=== PATIENT | female | born 1995 | race Asian ===

== ENCOUNTER 2018-03-26 09:21 | Emergency (ER) | payer OTHER ==
[~2018-03-26] VITALS: Ht 160 cm; Wt 65.7 kg
[2018-03-26 09:27] VITALS: TEMP 36.3; Ht 160 cm; Wt 65.7 kg
[2018-03-26 10:27] LABS: BASO % 0.1 %; BASO ABS # 0.01 K/uL (0-0.2); EOS % 0.1 %; EOS ABS # 0.01 K/uL (0-0.5); HEMATOCRIT 38.1 % (37-47); HEMOGLOBIN 12.9 g/dL (12.0-16.0); IG# 0.05 K/uL (0.00-0.02); LYMPH % 14.8 %; LYMPH ABS # 1.97 K/uL (1.2-3.4); MEAN CELL VOLUME 83.4 fL (80-100); MEAN CORPUSCULAR HEMOGLOBIN 28.2 pg (25-34); MEAN CORPUSCULAR HGB CONC 33.9 g/dl (32-36); MEAN PLATELET VOLUME 9.5 fL (7.4-10.4); MONO % 4.4 %; MONO ABS # 0.59 K/uL (0.11-0.59); NEUT % 80.2 %; NEUT ABS # 10.72 K/uL (1.4-6.5); PLATELET COUNT 267 K/uL (130-400); RED CELL DISTRIBUTION WIDTH CV 13.9 % (11.5-14.5); RED CELL DISTRIBUTION WIDTH SD 42.5 fL (36.4-46.3); WHITE BLOOD COUNT 13.35 K/uL (4.8-10.8)
[2018-03-26] MEDS ORDERED: [UNRECOGNIZED DRUG - OTHER] (10:29)
[2018-03-26 10:39] LABS: PTT PATIENT 26.6 SECONDS (21.0-31.0)
[2018-03-26 10:47] LABS: MONOSPOT NEG (NEG)
[2018-03-26 10:48] LABS: ALBUMIN 3.8 gm/dl (3.4-5.0); ALKALINE PHOSPHATASE 86 U/L (45-117); ALT/SGPT 37 U/L (12-78); AST/SGOT 23 U/L (15-37); BLOOD UREA NITROGEN 9 mg/dl (7-18); CALCIUM 8.8 mg/dl (8.5-10.1); CARBON DIOXIDE 24 mmol/L (21-32); CREATININE 0.53 mg/dl (0.60-1.20); GLUCOSE 107 mg/dl (70-99); POTASSIUM 3.6 mmol/L (3.5-5.1); SODIUM 136 mmol/L (136-145)
[2018-03-26] MEDS ORDERED: PRED20TA2 PO (11:30)
--- NOTE | 2018-03-26 11:31 | EMERGENCY ROOM VISIT NOTE ---
History First contact with patient: 09:33 Chief Complaint: RASH Stated Complaint: RASH History of Present Illness The patient is a 22 year old female who presents to the Emergency Room via private vehicle with complaints of "rash". The patient states that she recently came to the area from [place]. She flew in last week. She states she had a minimal cough last week which has subsided. She states that yesterday she noticed that she had a rash beginning on her right arm which then spread to the rest of her body. It is on her palms, feet and she notes it is itchy. No fevers, chills. She denies any medical problems. She has been doing dexamethasone cream and Claritin with some relief. She denies any trouble swallowing. No trouble breathing. She felt minimal chest tightness questionably earlier which has resolved. Review of Systems A complete 10-point Review of Systems was discussed with the patient, with pertinent positives and negatives listed in the History of Present Illness. All remaining Review of Systems questions can be considered negative unless otherwise specified. Past Medical/Surgical History No pertinent. Family History No pertinent. Social History Smoking Status: Never Smoker Patient is from [place], and is currently attending [facility]. Current/Historical Medications Scheduled Prednisone (Prednisone Tab), 2 TAB PO DAILY Miscellaneous Medications [Clarityne] Physical Exam Vital Signs Date Time Temp Pulse Resp B/P (MAP) Pulse Ox O2 Delivery O2 Flow Rate FiO2 03/26/18 11:42 87 20 119/82 98 03/26/18 10:09 Room Air 03/26/18 09:27 36.3 113 20 128/88 97 Room Air Physical Exam VITAL SIGNS - Vital signs and nursing notes were reviewed. Stable. Afebrile. GENERAL -22-year-old female appearing her stated age who is in no acute distress. Communicates well with provider and answers questions appropriately. SKIN -patient has numerous slightly raised urticarial-like erythematous regions that are circular in nature overlying the tops of the feet, palms and dorsum of the hand as well as on the torso and legs. It is not petechial in nature. There is no drainage. HEAD - NC/AT. EYES -Sclera anicteric. EARS - No deformities of external structures noted on gross examination bilaterally. NOSE - Midline and without cyanosis. No epistaxis or purulent drainage noted. MOUTH/OROPHARYNX - Without perioral cyanosis. Buccal mucosa pink and moist and without leukoplakia. Tongue midline with equal elevation of palate bilaterally. No tonsillar hypertrophy, erythema, or exudates noted. Small spots on the posterior mucosa noted. NECK - Neck with FROM. Supple to palpation. No lymphadenopathy noted. No nuchal rigidity. LUNGS - Chest wall symmetric without accessory muscle use, intercostals retractions, or central cyanosis. Normal vesicular breath sounds CTA B/L. No wheezes, rales, or rhonchi appreciated. CARDIAC - RRR with S1/S2. No murmur, rubs, or gallops appreciated. ABDOMEN - Abdominal contour normal without pulsations or visible masses. BS normoactive all four quadrants. No tenderness, palpable masses, hepatosplenomegaly, or ascites noted. EXTREMITIES - No clubbing or peripheral cyanosis. No pretibial edema present. + 5/5 strength noted in UE/LE bilaterally. NEUROLOGIC - Cranial nerves II through XII grossly intact. Sensory intact to light touch throughout. PSYCH - A&O, and cooperates fully with examiner. Pt is very pleasant and interacts well with examiner. Medical Decision & Procedures Laboratory Results 03/26/18 10:15 Red Blood Count 4.57, Mean Corpuscular Volume 83.4, Mean Corpuscular Hemoglobin 28.2, Mean Corpuscular Hemoglobin Concent 33.9, Mean Platelet Volume 9.5, Neutrophils (%) (Auto) 80.2, Lymphocytes (%) (Auto) 14.8, Monocytes (%) (Auto) 4.4, Eosinophils (%) (Auto) 0.1, Basophils (%) (Auto) 0.1, Neutrophils # (Auto) 10.72, Lymphocytes # (Auto) 1.97, Monocytes # (Auto) 0.59, Eosinophils # (Auto) 0.01, Basophils # (Auto) 0.01 03/26/18 10:15 Test 03/26/18 10:15 03/26/18 10:25 White Blood Count 13.35 K/uL (4.8-10.8) Red Blood Count 4.57 M/uL (4.2-5.4) Hemoglobin 12.9 g/dL (12.0-16.0) Hematocrit 38.1 % (37-47) Mean Corpuscular Volume 83.4 fL (80-100) Mean Corpuscular Hemoglobin 28.2 pg (25-34) Mean Corpuscular Hemoglobin Concent 33.9 g/dl (32-36) Platelet Count 267 K/uL (130-400) Mean Platelet Volume 9.5 fL (7.4-10.4) Neutrophils (%) (Auto) 80.2 % Lymphocytes (%) (Auto) 14.8 % Monocytes (%) (Auto) 4.4 % Eosinophils (%) (Auto) 0.1 % Basophils (%) (Auto) 0.1 % Neutrophils # (Auto) 10.72 K/uL (1.4-6.5) Lymphocytes # (Auto) 1.97 K/uL (1.2-3.4) Monocytes # (Auto) 0.59 K/uL (0.11-0.59) Eosinophils # (Auto) 0.01 K/uL (0-0.5) Basophils # (Auto) 0.01 K/uL (0-0.2) RDW Standard Deviation 42.5 fL (36.4-46.3) RDW Coefficient of Variation 13.9 % (11.5-14.5) Immature Granulocyte % (Auto) 0.4 % Immature Granulocyte # (Auto) 0.05 K/uL (0.00-0.02) Prothrombin Time 10.5 SECONDS (9.0-12.0) Prothromb Time International Ratio 1.0 (0.9-1.1) Activated Partial Thromboplast Time 26.6 SECONDS (21.0-31.0) Partial Thromboplastin Ratio 1.0 Anion Gap 9.0 mmol/L (3-11) Est Creatinine Clear Calc Drug Dose 151.7 ml/min Estimated GFR () > 150.0 Estimated GFR (Non- 134.8 BUN/Creatinine Ratio 17.6 (10-20) Calcium Level 8.8 mg/dl (8.5-10.1) Magnesium Level 1.8 mg/dl (1.8-2.4) Total Bilirubin 0.6 mg/dl (0.2-1) Aspartate Amino Transf (AST/SGOT) 23 U/L (15-37) Alanine Aminotransferase (ALT/SGPT) 37 U/L (12-78) Alkaline Phosphatase 86 U/L (45-117) Troponin I < 0.015 ng/ml (0-0.045) Total Protein 8.0 gm/dl (6.4-8.2) Albumin 3.8 gm/dl (3.4-5.0) Globulin 4.2 gm/dl (2.5-4.0) Albumin/Globulin Ratio 0.9 (0.9-2) Lyme Disease IgG Antibody NEG (NEG) Lyme Disease IgM Antibody NEG (NEG) Monoscreen NEG (NEG) Urine Color YELLOW Urine Appearance CLEAR (CLEAR) Urine pH 6.5 (4.5-7.5) Urine Specific [place] 1.011 (1.000-1.030) Urine Protein NEG (NEG) Urine Glucose (UA) NEG (NEG) Urine Ketones NEG (NEG) Urine Occult Blood NEG (NEG) Urine Nitrite NEG (NEG) Urine Bilirubin NEG (NEG) Urine Urobilinogen NEG (NEG) Urine Leukocyte Esterase NEG (NEG) Urine Test NEG (NEG) Medical Decision Patient was seen and evaluated as above in room B7. Review was performed of nursing notes and vital signs. After obtaining a thorough history and physical examination the above work up was performed. She presents to us today with a rash. No systemic symptoms. There is no headache or neck stiffness. I do not suspect meningitis or encephalitis. The patient is completely benign appearing , he is walking about the room and conversing well. She is nontoxic in appearance. She has what appears to be an urticarial rash. It is not consistent with that of measles, mumps, rubella, varicella, or other emergent process. She did also notes some minimal chest discomfort which I do not believe is correlated with this. I question if this could be reflux. EKG was obtained and reveals normal sinus rhythm. There are some T-wave inversions which I do not believe to be any concern emergently. I do recommend follow-up for this of which was discussed with the patient. I informed her that she can follow-up with [facility]. I did elect to obtain baseline labs and there is slight leukocytosis however at this time I do not suspect this to be an infectious etiology. She is afebrile. No concerning anemia. No emergent metabolic abnormality. Lyme testing and mono negative. Patient was thoroughly educated upon importance of follow-up. She is to call [facility] shortly after being discharged here today. She was given an oral steroid. She was also seen by the attending physician. The patient was educated upon management, educated upon todays findings/results, educated upon symptoms in which to return, had questions answered prior to discharge, and was discharged home in good condition. In the evaluation and treatment of this patient the following differential diagnoses were entertained: Urticarial rash, petechial rash, allergic reaction, measles, mumps, rubella, varicella, meningitis, among others. Impression Primary Impression: Rash Departure Information Dispostion Home / Self-Care Condition GOOD Prescriptions Prednisone (Prednisone Tab) 20 Mg Tab 2 TAB PO DAILY for 5 Days, #10 TAB Prov: Truong Downing PA-C 03/26/18 Referrals [facility] (PCP) Patient Instructions My [facility] Additional Instructions You have been treated in the Emergency Department for a rash. You have been treated and monitored in the Emergency Department appropriately. Please continue the Claritin. You have been prescribed Prednisone 40 mg to be taken orally once a day for the next 5 days. This is an anti-inflammatory medicine to be used to help minimize your symptoms. You should take the COMPLETE course of the medication. As with every Emergency Department visit, you should follow-up with your primary care provider in 2-3 days for reevaluation. Please call [facility] later today to schedule follow-up. Return to the Emergency Department if your current symptoms worsen despite treatment course outlined above, or if you develop any of the following symptoms : wheezing, tongue or face swelling, tightness in your throat, shortness of breath, or fainting.
[2018-03-26 11:42] VITALS: BP 119/82; PULSE 87; O2SAT 98
== END 2018-03-26 11:45 | disposition home or self-care (01) ==
LOC: C.EDB 09:22
DX: R21 Rash and other nonspecific skin eruption (principal)